=== PATIENT | female | born 1995 | race Caucasian/White ===

== ENCOUNTER 2018-04-15 15:01 | Emergency (ER) | payer SELFPAY ==
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
[2018-04-15 15:19] VITALS: BP 116/75; PULSE 88; TEMP 98.5; BMI 38.4
[2018-04-15] MEDS ORDERED: IBUPROFEN 600 MG TABLET (FP) PO ONE ×2 (15:25→15:29)
[2018-04-15] MEDS ORDERED: diazePAM 2 MG TABLET PO ONE (15:54)
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
[2018-04-15] MEDS ORDERED: diazePAM 2 MG TABLET ONE (16:03)
== END 2018-04-15 16:17 | disposition home or self-care (01) ==
LOC: FER 15:01
DX: V43.52XA Car driver injured in collision with other type car in traffic accident, initial encounter (principal); Y93.89 Activity, other specified; Y92.410 Unspecified street and highway as the place of occurrence of the external cause
CPT/HCPCS: 99281-25

== ENCOUNTER 2018-09-05 18:07 | Emergency (ER) | payer OTHER ==
[2018-09-05 18:11] VITALS: BMI 40.7
[2018-09-05 18:33] VITALS: BP 125/77; PULSE 88; TEMP 99.5
[2018-09-05] MEDS ORDERED: IBUPROFEN 600 MG TABLET (FP) PO ONE ×2 (19:05→19:16)
--- NOTE | 2018-09-05 19:05 | PDOC ---
History of Present Illness <Tad Varela - Last Filed: 09/05/18 19:02> - General History Source: Patient Exam Limitations: No Limitations - History of Present Illness Initial Comments: 09/05/18 19:06 The patient is a 23 year old female, with no significant PMH, who presents to the emergency department s/p fall at work around 11am. The patient states she was at work going into the freezer, where there was a lot of ice, when she slipped forward landing on her knees. The patient notes pain to the right anterior knee and medial right ankle. Patient denies any other complaints. Allergies: NKA Social history: None reported PCP: Dr. Yifan Duggan <Geraldine Harris - Last Filed: 09/05/18 19:06> - General Chief Complaint: Pain, Acute Stated Complaint: KNEE PAIN Time Seen by Provider: 09/05/18 18:23 Past History - Past Medical History COPD: No CHF: No - Immunization History Immunization Up to Date: Yes - Suicide/Smoking/Psychosocial Hx Smoking Status: No Smoking History: Never smoked Have you smoked in the past 12 months: No Number of Cigarettes Smoked Daily: 0 Hx Alcohol Use: No Drug/Substance Use Hx: No Substance Use Type: None Hx Substance Use Treatment: No <Tad Varela - Last Filed: 09/05/18 19:02> <Geraldine Harris - Last Filed: 09/05/18 19:06> - Past Medical History Allergies/Adverse Reactions: Allergies Allergy/AdvReac Type Severity Reaction Status Date / Time Penicillins Allergy Rash Verified 09/05/18 18:07 Home Medications: Ambulatory Orders NK [No Known Home Medication] 04/15/18 Review of Systems - Review of Systems Cardiac (ROS): No: Syncope ABD/GI: No: Nausea, Vomiting Musculoskeletal: Yes: Joint Pain Neurological: No: Tingling, Weakness <Tad Varela - Last Filed: 09/05/18 19:02> *Physical Exam - Vital Signs Last Vital Signs Temp Pulse Resp BP Pulse Ox 99.5 F 88 18 125/77 100 09/05/18 18:07 09/05/18 18:07 09/05/18 18:07 09/05/18 18:07 09/05/18 18:07 <Tad Varela - Last Filed: 09/05/18 19:02> - Vital Signs Last Vital Signs Temp Pulse Resp BP Pulse Ox 99.5 F 88 18 125/77 100 09/05/18 18:07 09/05/18 18:07 09/05/18 18:07 09/05/18 18:07 09/05/18 18:07 - Physical Exam Comments: 09/05/18 19:06 General: Patient is alert and in no acute distress. Speech is clear and appropriate. Head: Atraumatic and nontender. Back/Pelvis: There is no midline spine tenderness or step-off. Pelvis is stable and nontender. Extremities: (+)slight right knee joint tenderness. (+)slight right medial malleolar tenderness, no ankle effusion. Full flexion/extension of the knee and ankle. There is no extremity deformity or joint swelling. No focal bony tenderness throughout. 2+ distal pulses throughout. Neuro: Alert and oriented x3. Cranial nerves II through XII are intact. 5 out of 5 motor strength x4 extremities. [id number] is intact. No pronator drift. Skin: No abrasions/hematomas/lacerations. Psych: Affect is appropriate. <Geraldine Harris - Last Filed: 09/05/18 19:06> Moderate Sedation - Procedure Monitoring Vital Signs: Procedure Monitoring Vital Signs Temperature 99.5 F 09/05/18 18:07 Pulse Rate 88 09/05/18 18:07 Respiratory Rate 18 09/05/18 18:07 Blood Pressure 125/77 09/05/18 18:07 O2 Sat by Pulse Oximetry (%) 100 09/05/18 18:07 <Tad Varela - Last Filed: 09/05/18 19:02> - Procedure Monitoring Vital Signs: Procedure Monitoring Vital Signs Temperature 99.5 F 09/05/18 18:07 Pulse Rate 88 09/05/18 18:07 Respiratory Rate 18 09/05/18 18:07 Blood Pressure 125/77 09/05/18 18:07 O2 Sat by Pulse Oximetry (%) 100 09/05/18 18:07 <Geraldine Harris - Last Filed: 09/05/18 19:06> Medical Decision Making - Medical Decision Making 09/05/18 19:03 23y/o F p/w R knee/ankle pain s/p slip and fall on ice this morning. no other injury, no light-headedness/syncope/cp. vss no focal bony deformity/ttp, 5/5 flex/extend at hip/knee/ankle/toe. nvi distally r knee/ankle sprain v contusion, r/o fx. xrays pain control dispo <Tad Varela - Last Filed: 09/05/18 19:02> *DC/Admit/Observation/Transfer <Tad Varela - Last Filed: 09/05/18 19:02> - Attestations Scribe Attestion: 09/05/18 19:06 Documentation prepared by Geraldine Harris, acting as chief medical technologist for Tad Varela MD. <Geraldine Harris - Last Filed: 09/05/18 19:06> Diagnosis at time of Disposition: Accidental fall Qualifiers: Encounter type: initial encounter Qualified Code(s): W19.XXXA - Unspecified fall, initial encounter Knee contusion Qualifiers: Encounter type: initial encounter Laterality: right Qualified Code(s): S80.01XA - Contusion of right knee, initial encounter Ankle sprain Qualifiers: Encounter type: initial encounter Involved ligament of ankle: other ligament Laterality: right Qualified Code(s): S93.491A - Sprain of other ligament of right ankle, initial encounter - Discharge Dispostion Condition at time of disposition: Stable
--- NOTE | 2018-09-05 20:03 | PDOC ---
*Physical Exam - Vital Signs Last Vital Signs Temp Pulse Resp BP Pulse Ox 99.5 F 88 18 125/77 100 09/05/18 18:07 09/05/18 18:07 09/05/18 18:07 09/05/18 18:07 09/05/18 18:07 ED Treatment Course - ADDITIONAL ORDERS Additional order review: Laboratory Results 09/05/18 18:57 Urine HCG, Qual Negative Progress Note - Progress Note Progress Note: Care of this patient was transferred to in from Dr. Lozoya at 1900 hrs. This is a 23-year-old female who fell onto her knee and twisted her ankle. Patient had x-rays of ankle and knee pending at 7 PM X-rays read by me knee no acute pathology, Ankle no acute pathology. Patient discharged given a note for no work today and tomorrow and will follow- up with her primary care doctor *DC/Admit/Observation/Transfer Diagnosis at time of Disposition: Accidental fall Qualifiers: Encounter type: initial encounter Qualified Code(s): W19.XXXA - Unspecified fall, initial encounter Knee contusion Qualifiers: Encounter type: initial encounter Laterality: right Qualified Code(s): S80.01XA - Contusion of right knee, initial encounter Ankle sprain Qualifiers: Encounter type: initial encounter Involved ligament of ankle: other ligament Laterality: right Qualified Code(s): S93.491A - Sprain of other ligament of right ankle, initial encounter - Discharge Dispostion Disposition: HOME Condition at time of disposition: Stable - Referrals - Patient Instructions Additional Instructions: The x-rays were negative for any fracture or acute problems of your knee and ankle. Take Tylenol or Motrin as needed for the pain, rest the knee and ankle as much as possible and ice them for the next 24-48 hours. When you ice it due 20 minutes on 20 minutes off 4-5 times a day while awake. Return to the emergency department immediately with ANY new, persistent or worsening symptoms. Continue any medications as previously prescribed by your physician. You should follow up with your primary doctor as soon as possible regarding today's emergency department visit. . Please make sure your doctor reviews the results of your emergency evaluation. Thank you for coming to the Emergency Department today for your care. It was a pleasure to see you today. Please note that your evaluation is INCOMPLETE until you follow-up with your doctor. - Post Discharge Activity Forms/Work/School Notes: Back to Work
== END 2018-09-05 20:08 | disposition home or self-care (01) ==
LOC: FER 18:07
DX: S93.491A Sprain of other ligament of right ankle, initial encounter (principal); S80.01XA Contusion of right knee, initial encounter; W00.0XXA Fall on same level due to ice and snow, initial encounter; Y93.89 Activity, other specified; Y92.89 Other specified places as the place of occurrence of the external cause; Y99.0 Civilian activity done for income or pay
CPT/HCPCS: 73560-TC-RT-FY; 73610-TC-RT-FY; 84703; 99282-25

== ENCOUNTER 2019-01-26 08:13 | Emergency (ER) | payer BC, OTHER ==
[2019-01-26 08:22] VITALS: BP 125/80; PULSE 120; TEMP 101.3; BMI 44.2
--- NOTE | 2019-01-26 08:35 | PDOC ---
History of Present Illness - General Chief Complaint: Sore Throat Stated Complaint: SORE THROAT Time Seen by Provider: 01/26/19 08:30 History Source: Patient Exam Limitations: No Limitations - History of Present Illness Initial Comments: 01/26/19 08:33 Complaints of sore throat pain 2 days. States has progressively worsened with fevers, chills, difficulty swallowing. Noted bright red with exudate this morning. States works at [employer] with Public Timing/Duration: reports: getting worse Severity: reports: mild, moderate Associated Symptoms: reports: fever/chills, muscle aches, nasal congestion, sore throat. denies: cough Past History - Travel Traveled outside of the country in the last 30 days: No Close contact w/someone who was outside of country & ill: No - Past Medical History Allergies/Adverse Reactions: Allergies Allergy/AdvReac Type Severity Reaction Status Date / Time Penicillins Allergy Rash Verified 01/26/19 08:17 Home Medications: Ambulatory Orders Azithromycin [Zithromax -] 250 mg PO UTDICT #6 tab 01/26/19 COPD: No CHF: No - Immunization History Immunization Up to Date: Yes - Suicide/Smoking/Psychosocial Hx Smoking Status: No Smoking History: Never smoked Have you smoked in the past 12 months: No Number of Cigarettes Smoked Daily: 0 Information on smoking cessation initiated: No Hx Alcohol Use: No Drug/Substance Use Hx: No Substance Use Type: None Hx Substance Use Treatment: No Review of Systems - Review of Systems Able to Perform ROS?: Yes Is the patient limited Prydeinig proficient: Yes Constitutional: Yes: Symptoms Reported, See HPI, Chills, Fever, Malaise HEENTM: Yes: Symptoms Reported, See HPI, Mouth Pain, Difficulty Swallowing Respiratory: Yes: Symptoms reported, See HPI. No: Cough Neurological: Yes: Symptoms reported, See HPI, Headache All Other Systems: Reviewed and Negative *Physical Exam - Vital Signs Last Vital Signs Temp Pulse Resp BP Pulse Ox 101.3 F H 120 H 18 125/80 01/26/19 08:15 01/26/19 08:15 01/26/19 08:15 01/26/19 08:15 - Physical Exam General Appearance: Yes: Nourished, Appropriately Dressed, Apparent Distress, Mild Distress HEENT: positive: THELMA, TMs Normal (congested but landmarks easily visualized), Tonsillar Exudate, Tonsillar Erythema, Nasal Congestion Neck: positive: Supple, Lymphadenopathy (R), Lymphadenopathy (L) Respiratory/Chest: positive: Lungs Clear, Normal Breath Sounds Musculoskeletal: positive: Normal Inspection Extremity: positive: Normal Capillary Refill, Normal Inspection Integumentary: positive: Dry, Warm, Pale Neurologic: positive: high pressure firer II-XII NML intact, Fully Oriented, Alert, Normal Mood/ Affect, Normal Response, Motor Strength 5/5 Progress Note - Progress Note Progress Note: all clinical evidence of strep pharyngitis, will treat with azithromycin as patient has penicillin ALLERGY *DC/Admit/Observation/Transfer Diagnosis at time of Disposition: Pharyngitis Qualifiers: Pharyngitis/tonsillitis etiology: unspecified etiology Qualified Code(s): J02.9 - Acute pharyngitis, unspecified - Discharge Dispostion Disposition: HOME Condition at time of disposition: Stable Decision to Admit order: No - Referrals - Patient Instructions Printed Discharge Instructions: DI for Pharyngitis/Tonsillopharyngitis -- Adult Additional Instructions: Rest, drink lots of fluids: Teas, water, soups Eat cold things: Ice cream, ice pops, ice chips Saltwater gargles Steamy showers/seem to face break up mucus Avoid contact with others until fevers and pain resolved Lots of handwashing and good hygiene, this is contagious zithromycin as directed Tylenol or Motrin for fever and pain Followup with private physician in one to 2 days as needed if not improving Return to emergency department for worsened symptoms, fevers, dehydration - Post Discharge Activity Forms/Work/School Notes: Back to Work
== END 2019-01-26 08:35 | disposition home or self-care (01) ==
LOC: JERFT 08:13
DX: J02.9 Acute pharyngitis, unspecified (principal)
CPT/HCPCS: 99281-25

== ENCOUNTER 2021-02-05 12:16 | Emergency (ER) | payer BC ==
[2021-02-06 16:08] LABS: SARS-CoV-2 NAA Not Detected (Not Detected)
== END 2021-02-05 12:48 | disposition home or self-care (01) ==
LOC: JVIRT 12:16
DX: R51.9 Headache, unspecified (principal); R09.81 Nasal congestion; Z20.822 Contact with and (suspected) exposure to COVID-19
CPT/HCPCS: C9803; Q3014-GT; U0003; U0005

== ENCOUNTER 2021-02-20 14:43 | Emergency (ER) | payer BC | END 2021-02-20 17:54 | disposition home or self-care (01) | LOC: JVIRT 14:43 | DX: Z11.52 Encounter for screening for COVID-19 (principal) | CPT/HCPCS: C9803; Q3014-GT; U0003; U0005 ==

== ENCOUNTER 2022-04-26 07:19 | Emergency (ER) | payer BC ==
[2022-04-26 07:28] VITALS: BP 134/92; PULSE 84; RESP 14; TEMP 98.7; BMI 39.8
[2022-04-26] MEDS ORDERED: IBUPROFEN 600 MG TABLET (FP) PO ONE ×2 (07:33→07:37)
== END 2022-04-26 07:53 | disposition home or self-care (01) ==
LOC: FER 07:19
DX: M25.562 Pain in left knee (principal)
CPT/HCPCS: 99283-25

== ENCOUNTER 2023-09-05 10:21 | Emergency (ER) | payer OTHER, BC ==
[2023-09-05 10:47] VITALS: BP 130/86; PULSE 93; RESP 20; TEMP 98.4; BMI 38.9
[2023-09-05] MEDS ORDERED: LIDOCAINE 5% TOPICAL PATCH ONE (11:04)
[2023-09-05] MEDS ORDERED: ACETAMINOPHEN 325 MG TABLET (FP) ONE (11:04)
[2023-09-05] MEDS: LIDOCAINE 5% TOPICAL PATCH TP ONE (11:07)
[2023-09-05] MEDS: ACETAMINOPHEN 325 MG TABLET (FP) PO ONE (11:07)
[2023-09-05] MEDS ORDERED: LIDOCAINE PATCH REMOVAL MC ONE (22:00)
== END 2023-09-05 11:45 | disposition home or self-care (01) ==
LOC: FER 10:21
DX: M54.2 Cervicalgia (principal); R51.9 Headache, unspecified; V49.40XA Driver injured in collision with unspecified motor vehicles in traffic accident, initial encounter
CPT/HCPCS: 99283-25